=== PATIENT | female | born 1965 | race Caucasian/White ===

== ENCOUNTER → 2018-06-15 | Day surgery (SDC) | payer BC | LOC: MSO 08:45 | DX: Z12.11 Encounter for screening for malignant neoplasm of colon (principal) | CPT/HCPCS: 00812; J2704; J3010; J7120 ==

== ENCOUNTER → 2021-02-28 | Day surgery (SDC) | payer BC | LOC: MSO 08:09 | DX: H26.8 Other specified cataract (principal); G40.909 Epilepsy, unspecified, not intractable, without status epilepticus; Z79.899 Other long term (current) drug therapy | CPT/HCPCS: 00142; J0171; J2250; V2632 ==

== ENCOUNTER → 2021-04-04 | Day surgery (SDC) | payer BC | END | disposition home or self-care (01) | LOC: MSO 07:26 | DX: H26.8 Other specified cataract (principal) | CPT/HCPCS: 00142; J0171; J2250; V2632 ==